=== PATIENT | male | born 1960 | race Caucasian/White ===

== ENCOUNTER → 2017-10-04 | Outpatient (CLI) | payer OTHER ==
[~2017-10-04] VITALS: Ht 182.9 cm; Wt 119.8 kg
[~2017-10-04] MED LIST: ADDERALL XR 3030 MG PO; GLUCOPHAGE500 MG PO; LIPITOR10 MG PO
[2017-10-04 11:01] LABS: CHLORIDE 107 MEQ/L (99-109); POTASSIUM 4.3 MEQ/L (3.7-5.4); SODIUM 140 MEQ/L (136-147)
[2017-10-04 11:07] LABS: CREATININE 0.9 MG/DL (0.6-1.3); GFR ESTIMATE (CALCULATED) > 59 mL/min/ (58.99-99999); GLUCOSE 101 mg/dL (70-99); UREA NITROGEN (BUN) 19 mg/dL (9-23)
== END | disposition home or self-care (01) ==
LOC: AMB 09:30
PROVIDERS: Internal Medicine
PROC: 0DJD8ZZ Inspection of Lower Intestinal Tract, Via Natural or Artificial Opening Endoscopic (ICD-10-PCS; principal; 2017-10-04)
DX: Z12.11 Encounter for screening for malignant neoplasm of colon (principal); K64.8 Other hemorrhoids; F98.9 Unspecified behavioral and emotional disorders with onset usually occurring in childhood and adolescence; Z79.84 Long term (current) use of oral hypoglycemic drugs; Z88.1 Allergy status to other antibiotic agents
CPT/HCPCS: 80048; 82948; 93005